=== PATIENT | female | born 1950 | race African-American/Black ===

== ENCOUNTER 2017-02-07 21:26 | Inpatient (IN) | payer MEDICARE, OTHER ==
--- NOTE | ~2017-02-07 | DS ---
Unit #: [id number] #: [id number] Patient: RICHI RAMON [id number] [facility] [address] [place] [address] [id number] MR#: [id number] NAME: RICHI RAMON ROOM: [facility] Age: 66 Sex: F Admission Date: 02/07/2017 : 1950 Discharge Date: 02/14/2017 Attending Physician: Lev Child M.D. Primary Care Physician: Primary Care Physician No DISCHARGE SUMMARY REASON FOR ADMISSION Cocaine abuse and depression. DIAGNOSTIC STUDIES LABORATORY RESULTS: Unremarkable except urine drug screen positive for cocaine. HOSPITAL COURSE The patient was admitted to inpatient unit on 02/07/2017 and discharged on 02/14/2017. The patient was treated on the inpatient unit with expressive therapy, medication management, pastoral care, psychoeducation, and psychotherapy. The patient was subsequently discharged with a plan to follow up in outpatient program. DISCHARGE MEDICATIONS Topamax 100 mg b.i.d. for mood stabilization and Celexa 20 mg daily for mood symptoms. DISCHARGE DIAGNOSES Psychiatric: 1. Major depressive disorder, recurrent, severe, F33.2. 2. Cocaine use disorder, severe, F14.20. 3. Alcohol use disorder, mild, F10.20. Secondary diagnosis: Deferred. Medical diagnosis: Please refer to H and P. Stressors: Psychosocial stressors. DISCHARGE INSTRUCTIONS The patient is to follow up in outpatient clinic as per manager social. CONDITION ON DISCHARGE The patient was pleasant and cooperative. Denied any psychotic symptom or any suicidal ideation. PROGNOSIS Guarded. DIET AND ACTIVITY As tolerated. Unit #: [id number] #: [id number] Patient: RICHI RAMON Dictated by... Dianna MorrisC/marty TD: 02/14/2017 18:26 JOB #: [id number] DISCHARGE SUMMARY Page 1 of 1 X Lev Child MD X DISCHARGE SUMMARY
--- NOTE | ~2017-02-07 | PN ---
Unit #: [id number] #: [id number] Patient: RICHI RAMON [id number] [facility] [address] [place] [address] [id number] I MR#: [id number] NAME: RICHI RAMON ROOM: 64 Age: 66 Sex: F Admission Date: 02/07/2017 : 1950 Attending Physician: Lev Child M.D. Admitting Physician: Lev Child M.D. Primary Care Physician: Laury Primary Care Physician [facility] PROGRESS NOTES DATE OF SERVICE 02/09/2017 DISCUSSION Ms. Orellana is a 66-year-old female seen on 02/09/2017. Patient reported not feeling well, having problems with the nausea/vomiting. Patient was given Phenergan 25 mg IM shot. Patient continues to be feeling sick, withdrawn, isolative, guarded, flat affect, sad, dysphoric, anxious, and nervous. Reported vomiting. REVIEW OF SYSTEMS Complete review of systems unremarkable. MENTAL STATUS EXAMINATION GENERAL APPEARANCE: Patient thin built, casually dressed. ATTENTION SPAN AND CONCENTRATION: Fair. ORIENTATION: Oriented in place and person. MOOD AND AFFECT: Sad, dysphoric, withdrawn. SPEECH: Monotone. THOUGHT PROCESS: [place]. Patient denied any thoughts of harming self or others, but guarded, paranoid. RECENT AND REMOTE MEMORY: Poor. INSIGHT AND JUDGEMENT: Poor. DIAGNOSES 1. Cocaine use disorder, severe. 2. Mood disorder, NOS. ASSESSMENT/PLAN Advised to continue with current medication and therapeutic protocol. Will monitor response to medication and make further adjustment of medication. Dictated by... Dianna Morris/yazmin TD: 02/10/2017 10:10 JOB #: [id number] Unit #: [id number] #: [id number] Patient: RICHI RAMON [facility] PROGRESS NOTES Page 1 of 1 X Lev Child MD PROGRESS NOTE
--- NOTE | ~2017-02-07 | PA ---
Unit #: [id number] #: [id number] Patient: RICHI RAMON [id number] [facility] [address] [place] [address] [id number] MR#: [id number] NAME: RICHI RAMON ROOM: 64 Age: 66 Sex: F Admission Date: 02/07/2017 : 1950 Date of Assessment: Attending Physician: Lev Child M.D. Admitting Physician: Lev Child M.D. Primary Care Physician: Primary Care Physician No PSYCHIATRIC ASSESSMENT INFORMANTS The patient reliability, fair; chart reliability, good. CHIEF COMPLAINT Detox and depression. HISTORY OF PRESENT ILLNESS Richi is a 66-year-old female, seen on 2-Eileen with the above-mentioned complaint. The patient presented with suicidal ideation due to recent crack cocaine relapse. The patient reported suicidal ideation and multiple stressors. The patient reports "if I leave from here, I'm not going to make it." The patient stated if she left, she would overdose on her Topamax medication. The patient denied any history of suicidal ideation. The patient has a history of sobriety for 15 years. The patient stated that recently stressors are family issues, losing job, being in danger of losing her home due to decrease in income. The patient is needing inpatient admission at this time for psychiatric stabilization, feeling of hopelessness and worthlessness. The patient also reported use of alcohol, marijuana, and crack cocaine, age of onset 31. The patient reported history of blackout in the past. No history of any IV drug use. PAST PSYCHIATRIC HISTORY Remarkable for history of previous treatment. Details unknown at this time. FAMILY HISTORY AND SOCIAL HISTORY The patient has a poor support system. Family psychiatric illness is unknown for any history of any psychiatric illness in the family members. MEDICAL HISTORY Remarkable for history of Graves disease and seizure. Musculoskeletal; muscle strength and tone, no atrophy or abnormal movement. Gait normal. MEDICATION HISTORY The patient is on Topamax for seizure. ALLERGIES No known drug allergies. SUBSTANCE ABUSE HISTORY Please see above. REVIEW OF SYSTEMS Unit #: [id number] #: [id number] Patient: RICHI RAMON HEENT: Eyes, clear. Ears, nose, mouth, and throat; clear. CARDIOVASCULAR: Unremarkable. RESPIRATORY: Unremarkable. GI: Unremarkable. : Unremarkable. SKIN: Unremarkable. LYMPH NODE: Unremarkable. NEUROLOGIC: Unremarkable. ENDOCRINE: Unremarkable. HEMATOLOGIC: Unremarkable. ALLERGIC: Unremarkable. IMMUNOLOGIC: Unremarkable. MUSCULOSKELETAL: Muscle strength and tone, no atrophy or abnormal movement. Gait normal. MENTAL STATUS EXAMINATION CONSTITUTIONAL: Measurement of vital signs; temperature 98.2, pulse 82, respirations 18, and blood pressure 124/86. Height 5 feet 4 inches and weight 148 pounds. GENERAL APPEARANCE: The patient dressed casually. The patient did not show any facial deformity. MUSCULOSKELETAL: Please see above. PSYCHIATRIC EXAMINATION Description of speech; regular rate, normal volume, normal articulation, coherent, spontaneous. Description of thought process, goal directed. Description of association, intact. Description of abnormal psychotic thinking; the patient denied any hallucinations or delusions, but mood lability, sad, depressed, substance abuse. Description of the patient's judgment: Concerning everyday activity, poor. Social situation, poor. Concerning psychiatric condition, poor. The patient reported having suicidal ideation, but denied any homicidal ideation or any psychotic symptom. Complete mental status examination; oriented in time, place, and person. Recent and remote memory, fair. Attention span and concentration, fair. Language; able to name object, repeat phrases. Fund of knowledge; aware of current event, passive vocabulary intact. Mood and affect, sad and dysphoric. Insight and judgment were fair to poor. ASSETS AND LIABILITIES Assets; the patient is articulate, able to take care of her ADL. Liabilities, history of depression, substance abuse. ADMITTING DIAGNOSES Psychiatric: 1. Major depressive disorder, recurrent, severe, F33.2. 2. Cocaine use disorder, severe, F14.20. 3. Alcohol use disorder, mild, F10.20. Secondary diagnosis: Deferred. Medical diagnosis: Please refer to H and P. Stressors: Psychosocial stressors. PSYCHIATRIC PLAN, TREATMENT GOAL, AND DISCHARGE PLAN 1. Advised to admit the patient on the inpatient unit. Provide safe, supportive, and structured environment. Unit #: [id number] #: [id number] Patient: RICHI RAMON 2. Ordered labs; CBC, CMP, UA, and UDS. 3. Recommending Celexa 20 mg daily for depression and continue with Topamax 100 mg b.i.d. The patient is to attend all the programing, group therapy, and individual therapy. If needed, family session. 4. Treatment goal is to attain euthymic mood, gain insight into her problem, and learn coping skills. 5. Discharge plan: Plan is to stabilize the patient and consider followup in outpatient program. ESTIMATED LENGTH OF STAY 7 to 10 days. Dictated by... Dianna Morris/marty TD: 02/08/2017 23:18 JOB #: [id number] PSYCHIATRIC ASSESSMENT Page 1 of 1 X Lev Child MD X PSYCHIATRIC ASSESSMENT
--- NOTE | ~2017-02-07 | HP ---
Unit #: [id number] #: [id number] Patient: RICHI RAMON [id number] [place] [address] [id number] MR#: [id number] NAME: RICHI RAMON ROOM: 64 Age: 66 Sex: F Admission Date: 02/07/2017 : 1950 Attending Physician: Lev Child M.D. Admitting Physician: Lev Child M.D. Primary Care Physician: Primary Care Physician No HISTORY AND PHYSICAL HISTORY OF PRESENT ILLNESS Richi is a 66 year old admitted to [address] [place] [address] because of her cocaine use. She also reports depression and verbalizes wanting to hurt herself. PAST MEDICAL HISTORY 1. History of cocaine use. 2. Seizure disorder. PAST SURGICAL HISTORY 1. Hysterectomy. 2. Cholecystectomy. 3. Small intestine resection. ALLERGIES No known drug allergies. SOCIAL HISTORY She denies cigarettes and alcohol. Admits to cocaine use. FAMILY HISTORY Medically noncontributory. REVIEW OF SYSTEMS CONSTITUTIONAL: No fever or chills. HEENT: Denies any sore throat, ear pain or runny nose. CARDIOVASCULAR: Denies chest pain, irregular heart rhythm or palpitations. CHEST: Denies shortness of breath or cough. No hemoptysis. GASTROINTESTINAL: Denies nausea, vomiting, diarrhea or chronic constipation. ENDOCRINE: Denies history of increased thirst or urination. No recent significant weight loss or gain. GENITOURINARY: Denies dysuria, frequency, or hematuria. SKIN: Denies any rashes. HEMATOLOGIC: Denies history of increased bleeding or bruising. MUSCULOSKELETAL: Denies any hot, swollen joints. No generalized muscle pain. NEUROLOGIC: Denies problems with vision or speech. No frequent, severe headaches. No numbness, tingling or weakness in any extremities. Denies loss of bladder or bowel control. CURRENT MEDICATIONS 1. Celexa 20 mg daily. 2. Milk of Magnesia p.r.n. Unit #: [id number] #: [id number] Patient: RICHI RAMON 3. Maalox p.r.n. 4. Tylenol p.r.n. 5. Ibuprofen 800 mg q. 6 hours p.r.n. 6. Zofran p.r.n. 7. Topamax 100 mg b.i.d. PHYSICAL EXAMINATION GENERAL: Alert, well-nourished, in no apparent distress. VITAL SIGNS: Blood pressure 124/86, heart rate 82, respirations 16, temperature 98.6. WEIGHT: 148. HEIGHT: 5 feet 4 inches. SKIN: Warm and dry without rash or lesion. HEENT: Normocephalic. TMs not viewed. Oral and nasal passages clear. Conjunctivae clear. PERRLA. EOMs intact. NECK: Supple without lymphadenopathy or thyromegaly. HEART: Regular rate and rhythm without murmur. LUNGS: Clear. ABDOMEN: Soft, nontender. : Not done. EXTREMITIES: No evidence of cyanosis, clubbing or edema. Moves all without focal deficit. NEUROLOGICAL: Grossly within normal limits. Cranial Nerves: II: Visual duran are intact. III, IV AND : Extraocular movements are intact. Pupils are equal, round and reactive to light. V: Facial sensation is grossly normal. VII: Facial movements and expression are normal. VIII: Auditory acuity grossly intact. IX, X: Uvula is midline. Phonation is normal. XI: Patient shrugs shoulders and turns head normally. XII: Tongue protrudes in the midline. Sensory and Motor Function: Sensory and motor sensation is grossly normal. Motor: moves all extremities well. Coordination: Gait is normal. Deep Tendon Reflexes: Intact. IMPRESSION Psychiatric admission. RECOMMENDATIONS PSYCHIATRIC: Per psychiatrist. MEDICAL: See no contraindications to participate in facility's activities. MEDICAL PROGNOSIS Good. MEDICAL CONDITION Stable. Dictated by... Natalie Bennett P.A.-C. for Dianna Gr/teresa TD: 02/08/2017 20:39 Unit #: [id number] #: [id number] Patient: RICHI RAMON JOB #: [id number] HISTORY AND PHYSICAL Page 1 of 1 X Natalie Bennett HISTORY AND PHYSICAL
--- NOTE | ~2017-02-07 | PN ---
Unit #: [id number] #: [id number] Patient: RICHI RAMON [id number] [facility] [address] [place] [address] [id number] I MR#: [id number] NAME: RICHI RAMON ROOM: [facility] Age: 66 Sex: F Admission Date: 02/07/2017 : 1950 Attending Physician: Lev Child M.D. Admitting Physician: Lev Child M.D. Primary Care Physician: Primary Care Physician No [facility] PROGRESS NOTES DATE 02/10/2017 DISCUSSION Ms. Orellana is a 66-year-old female seen on 02/10/2017. Patient interviewed. Chart reviewed. Obtained information from nursing staff. Patient withdrawn, isolative, flat affect. Reports that she is still having withdrawal symptoms but no nausea, vomiting. Mood sad, dysphoric, flat affect, guarded, isolative. Patient tolerating medication fairly well. Complete review of system unremarkable. MENTAL STATUS EXAMINATION General appearance, patient dressed casually. Attention span, concentration fair. Oriented in place and person. Mood and affect sad, depressed. Speech monotone. Thought process concrete. Patient denied any suicidal ideation but hopelessness, worthlessness, sad, depressed, withdrawn, seclusive. Recent and remote memory poor. Insight and judgement poor. DIAGNOSES 1. Major depressive disorder, recurrent, severe. 2. Cocaine use disorder, severe. 3. Alcohol use disorder, mild. ASSESSMENT/PLAN Advised to continue with current medication and therapeutic protocol. Will monitor response to medication and make further adjustment of medication. Dictated by... Dianna Morris/teresa TD: 02/11/2017 16:32 JOB #: [id number] Unit #: [id number] #: [id number] Patient: RICHI RAMON [facility] PROGRESS NOTES Page 1 of 1 X Lev Child MD PROGRESS NOTE
--- NOTE | ~2017-02-07 | PN ---
Unit #: [id number] #: [id number] Patient: RICHI RAMON [id number] [facility] [address] [place] [address] [id number] I MR#: [id number] NAME: RICHI RAMON ROOM: [facility] Age: 66 Sex: F Admission Date: 02/07/2017 : 1950 Attending Physician: Lev Child M.D. Admitting Physician: Lev Child M.D. Primary Care Physician: Primary Care Physician Laury [facility] PROGRESS NOTES DATE 02/11/2017 DISCUSSION Richi is a 66-year-old female, seen on 02/11/2017. The patient interviewed, chart reviewed, and obtained information from the nursing staff. The patient was compliant and cooperative. Mood sad and dysphoric, flat affect, and guarded. The patient is still isolative, reports still feeling sad, depressed, anxious. Vital signs, stable, 98.6, 100, 16, and 136/99. REVIEW OF SYSTEMS Complete review of systems unremarkable. MENTAL STATUS EXAMINATION General appearance: Patient dressed casually. Attention span and concentration, fair. Oriented to place and person. Mood and affect, sad, dysphoric, and withdrawn, isolative. Speech, monotone. Thought process, concrete. The patient denied any thoughts of harming self or others but still reporting sad, depressed, flat affect, guarded, withdrawn, seclusive. Recent and remote memory, poor. Insight and judgment, poor. DIAGNOSES 1. Mood disorder, NOS. 2. Cocaine abuse, moderate. ASSESSMENT/PLAN Advised to continue with the current medication and therapeutic protocol and will monitor response to medication, and make further adjustment of medication. Dictated by... Dianna Morris/myrna TD: 02/14/2017 06:25 JOB #: [id number] Unit #: [id number] #: [id number] Patient: RICHI RAMON [facility] PROGRESS NOTES Page 1 of 1 X Lev Child MD X PROGRESS NOTE
--- NOTE | ~2017-02-07 | PN ---
Unit #: [id number] #: [id number] Patient: RICHI RAMON [id number] [facility] [address] [place] [address] [id number] MR#: [id number] NAME: RICHI RAMON ROOM: [facility] Age: 66 Sex: F Admission Date: 02/07/2017 : 1950 Attending Physician: Lev Child M.D. Admitting Physician: Lev Child M.D. Primary Care Physician: Primary Care Physician No [facility] PROGRESS NOTES DATE 02/12/2017 DISCUSSION Ms. Orellana is a 66-year-old female, seen on 02/12/2017. The patient interviewed, chart reviewed, and obtained information from the nursing staff. The patient was compliant and cooperative. Mood sad and dysphoric, flat affect, and guarded. The patient reports making progress, decrease in anxiety, denied any side effects from medication or any nausea or vomiting. VITAL SIGNS: 98.3, 108, and 124/96. REVIEW OF SYSTEMS Complete review of systems unremarkable. MENTAL STATUS EXAMINATION General appearance: Patient dressed casually. Attention span and concentration, fair. Oriented to place and person. Mood and affect, sad and dysphoric. Speech, monotone. Thought process, concrete. The patient denied any thoughts of harming self or others or any psychotic symptoms. Recent and remote memory, poor. Insight and judgment, poor. DIAGNOSES 1. Mood disorder, NOS. 2. Cocaine use disorder, moderate. ASSESSMENT/PLAN Advised to continue with the current medication and of needed consider further adjustment of medication with the plan to transition the patient into outpatient program. Dictated by... Dianna Morris/myrna TD: 02/15/2017 05:48 JOB #: [id number] Unit #: [id number] #: [id number] Patient: RICHI RAMON [facility] PROGRESS NOTES Page 1 of 1 X Lev Child MD PROGRESS NOTE
--- NOTE | ~2017-02-07 | PN ---
Unit #: [id number] #: [id number] Patient: RICHI RAMON [id number] [facility] [address] [place] [address] [id number] MR#: [id number] NAME: RICHI RAMON ROOM: [facility] Age: 66 Sex: F Admission Date: 02/07/2017 : 1950 Attending Physician: Lev Child M.D. Admitting Physician: Lev Child M.D. Primary Care Physician: Primary Care Physician Laury [facility] PROGRESS NOTES DATE 02/13/2017 DISCUSSION Ms. Orellana is a 66-year-old female, seen on 02/13/2017. The patient interviewed, chart reviewed, and obtained information from the nursing staff. The patient was compliant and cooperative. Mood labile. The patient is somewhat sad and dysphoric but able to maintain safe behavior. Cooperative but somewhat withdrawn, able to attend select activities, minimal interaction. REVIEW OF SYSTEMS Complete review of systems unremarkable. MENTAL STATUS EXAMINATION General appearance: Patient dressed casually. Attention span and concentration, fair. Oriented to place and person. Mood and affect, sad and dysphoric, withdrawn, isolative, seclusive. Speech, monotone. Thought process, concrete. The patient denied any thoughts of harming self or others but still sad, depressed, withdrawn. Recent and remote memory, poor. Insight and judgment, poor. DIAGNOSES 1. Mood disorder, NOS. 2. Cocaine use disorder, [id number]. ASSESSMENT/PLAN Advised to continue with the current medication and therapeutic protocol and will monitor response to medication, and make further adjustment of medication. Dictated by... Dianna Morris/myrna TD: 02/15/2017 09:15 JOB #: [id number] Unit #: [id number] #: [id number] Patient: RICHI RAMON [facility] PROGRESS NOT[facility] Page 1 of 1 X Lev Child MD PROGRESS NOTE
[2017-02-08 09:34] LABS: BASOPHIL% 0.6 % (0-2.5); EOSINOPHIL# 0.2 X10e3 (0-0.7); HEMATOCRIT 36.5 % (35.0-45.0); HEMOGLOBIN 11.8 gm/dL (12.0-16.0); LYMPHOCYTE# 1.9 X10e3 (1.0-3.5); LYMPHOCYTE% 32.9 % (17.0-45.0); MEAN CORPUSCULAR HGB CONC 32.5 g/dL (30-36); MEAN PLATELET VOLUME 8.4 FL (6.5-11.5); MONOCYTE# 0.6 X10e3 (0-1.0); MONOCYTE% 9.7 % (3.0-12.0); NEUTROPHIL# 3.1 X10e3 (1.5-7.1); NEUTROPHIL% 52.8 % (40-75); PLATELET COUNT 267 X10e3 (140-420); RED BLOOD COUNT 4.56 X10e (3.90-5.30); RED CELL DISTRIBUTION WIDTH 14.4 % (11.0-15.5); WHITE BLOOD COUNT 5.8 X10e3 (4.0-10.5)
[2017-02-08 09:36] LABS: URINE APPEARANCE CLEAR; URINE BILIRUBIN NEG (NEG); URINE BLOOD NEG (NEG); URINE COLOR YELLOW; URINE GLUCOSE NEG (NEG); URINE KETONE NEG (NEG); URINE LEUKOCYTE ESTERASE NEG (NEG); URINE NITRATE NEG (NEG); URINE PH 6.5 (5-8); URINE PROTEIN NEG (NEG); URINE SPECIFIC GRAVITY 1.012 (1.003-1.035); URINE UROBILINOGEN 0.2 MG/DL (NEG)
[2017-02-08 09:37] LABS: DIFF IND NO
[2017-02-08 09:51] LABS: THYROID STIMULATING HORMONE 0.66 uIU/ml (0.34-5.60)
[2017-02-08 09:53] LABS: ALBUMIN SERUM 3.6 g/dL (3.5-5.0); BILIRUBIN,TOTAL 0.8 mg/dL (0.2-2.0); BUN/CREATININE RATIO 13.33; CALCIUM SERUM 9.1 mg/dL (8.4-10.2); CREATININE SERUM 0.6 mg/dL (0.6-1.4); GLOM FILT RATE Estimated 110.1 mL/min (>60); POTASSIUM 3.8 mmol/L (3.5-5.1); PROTEIN TOTAL SERUM 6.2 g/dL (6.0-8.3)
[2017-02-08 09:58] LABS: FREE THYROXIN (T4) 0.79 ng/dL (0.58-1.64)
[2017-02-08 10:10] LABS: AMPHETAMINE NEG (NEG); BARBITURATES NEG (NEG); BENZODIAZEPINES NEG (NEG); COCAINE POS (NEG); MARIJUANA NEG (NEG); OPIATES NEG (NEG); TRICYCLIC ANTIDEPRESSANTS NEG (NEG); U METHADONE NEG (NEG)
== END 2017-02-14 11:15 | disposition home or self-care (01) | DRG 885 ==
LOC: P2L 21:26
PROVIDERS: Psychiatry & Neurology Psychiatry
PROC: HZ2ZZZZ Detoxification Services for Substance Abuse Treatment (ICD-10-PCS; principal; 2017-02-07)
DX: F33.2 Major depressive disorder, recurrent severe without psychotic features (principal); F14.20 Cocaine dependence, uncomplicated; R56.9 Unspecified convulsions; R45.851 Suicidal ideations; F10.20 Alcohol dependence, uncomplicated; E05.00 Thyrotoxicosis with diffuse goiter without thyrotoxic crisis or storm; Z90.710 Acquired absence of both cervix and uterus; Z90.49 Acquired absence of other specified parts of digestive tract; F39 Unspecified mood [affective] disorder
CPT/HCPCS: 80053; 80307; 81003; 84439; 84443; 85025; J2550